=== PATIENT | female | born 1975 | race Caucasian/White ===

== ENCOUNTER 2019-02-27 03:34 | Emergency (ER) | payer BC ==
[~2019-02-27] VITALS: Ht 160 cm; Wt 107.5 kg
[~2019-02-27 03:34] MED LIST: ALEVE220 M1 PO; AMOXICILLIN 50500 MG PO; FLONASE 0.05%50 MCG NASAL; MOTRIN 800 MG; NORCO 5-325 TA1 EACH PO; PREDNISONE 10 M10 MG PO
[2019-02-27] MEDS ORDERED: XARELTO20 MG PO (03:46)
[2019-02-27] MEDS ORDERED: ASA81BEC PO (03:46)
[2019-02-27] MEDS ORDERED: COZAAR 25 MG TA25 M1 PO (03:47)
[2019-02-27 04:08] LABS: ABSOLUTE EOSINOPHILS 0.4 thou/uL (0.0-0.7); ABSOLUTE LYMPHOCYTES 3.5 thou/uL (0.8-5.3); ABSOLUTE MONOCYTES 0.7 thou/uL (0.0-1.2); ABSOLUTE NEUTROPHILS 5.5 thou/uL (1.6-8.1); BASOPHILS 0.3 %; EOSINOPHILS 4.2 %; HEMATOCRIT 34.4 % (37.0-47.0); HEMOGLOBIN 11.6 gm/dL (12.0-15.0); LYMPHOCYTES 34.6 %; MCH 29.2 pg (26.0-34.0); MCHC 33.8 g/dL (28.0-37.0); MCV 86.4 fL (80.0-100.0); MPV 8.3 fl. (7.2-11.1); NUCLEATED RBCS 0 /100WBC; PLATELET COUNT* 326 thou/uL (150-400); POLYS 53.9 %; RBC 3.99 mil/uL (4.20-5.00); RDW-CV 13.5 % (10.5-14.5); WBC 10.3 thou/uL (4.0-11.0)
[2019-02-27 04:10] LABS: URINE BILIRUBIN NEGATIVE (Negative); URINE BLOOD TRACE (Negative); URINE CLARITY CLEAR; URINE COLOR YELLOW; URINE GLUCOSE-RANDOM NEGATIVE (Negative); URINE KETONES NEGATIVE (Negative); URINE LEUKOCYTES-REFLEX NEGATIVE (Negative); URINE NITRITE-REFLEX NEGATIVE (Negative); URINE PROTEIN NEGATIVE (Negative); URINE SPECIFIC GRAVITY 1.025 (1.005-1.030); URINE UROBILINOGEN 0.2 E.U./dl (0.2-1.0)
[2019-02-27 04:19] LABS: CALCIUM 8.1 mg/dL (8.5-10.1); CREATININE 0.8 mg/dL (0.6-1.3); POTASSIUM 4.2 mmol/L (3.5-5.1)
[2019-02-27 04:23] LABS: ALBUMIN 3.3 g/dL (3.4-5.0); TOTAL BILIRUBIN 0.5 mg/dL (<0.1-1.0); TOTAL PROTEIN 6.7 g/dL (6.4-8.2)
[2019-02-27] MEDS ORDERED: NORCO 5-325 TA1 EAC1 PO (06:37)
[2019-02-27 07:40] VITALS: BP 130/56
== END 2019-02-27 07:40 | disposition home or self-care (01) ==
LOC: M.ERS 03:34
PROVIDERS: Emergency Medicine Emergency Medical Services
DX: R10.9 Unspecified abdominal pain (principal); N80.9 Endometriosis, unspecified; Z88.1 Allergy status to other antibiotic agents; Z88.6 Allergy status to analgesic agent; Z88.8 Allergy status to other drugs, medicaments and biological substances; Z90.49 Acquired absence of other specified parts of digestive tract

== ENCOUNTER 2021-02-26 07:19 | Inpatient (IN) | payer BC ==
[~2021-02-26] VITALS: Ht 154.9 cm; Wt 133.8 kg
[~2021-02-26 07:19] MED LIST changes: +ASA81BEC PO; +COZAAR 25 MG TA25 M1 PO; +NORCO 5-325 TA1 EAC1 PO; +XARELTO20 MG PO
[2021-02-26 07:59] VITALS: BP 147/91
[2021-02-26] MEDS ORDERED: COZAAR 25 MG TA25 MG PO (08:02)
[2021-02-26 08:32] LABS: ABSOLUTE LYMPHOCYTES 0.9 thou/uL (0.8-5.3); ABSOLUTE MONOCYTES 0.3 thou/uL (0.0-1.2); ABSOLUTE NEUTROPHILS 4.5 thou/uL (1.6-8.1); BASOPHILS 0.4 %; HEMOGLOBIN 11.3 gm/dL (12.0-15.0); LYMPHOCYTES 15.6 %; MCH 27.9 pg (26.0-34.0); MCHC 33.2 g/dL (28.0-37.0); MCV 83.9 fL (80.0-100.0); MONOCYTES 4.6 %; MPV 9.4 fl. (7.2-11.1); NUCLEATED RBCS 0 /100WBC; PLATELET COUNT* 237 thou/uL (150-400); POLYS 79.4 %; RBC 4.05 mil/uL (4.20-5.00); RDW-CV 13.5 % (10.5-14.5); WBC 5.7 thou/uL (4.0-11.0)
[2021-02-26 09:10] LABS: ALBUMIN 2.6 g/dL (3.4-5.0); CALCIUM 7.9 mg/dL (8.5-10.1); CREATININE 0.6 mg/dL (0.6-1.3); TOTAL BILIRUBIN 0.4 mg/dL (<0.1-1.0); TOTAL PROTEIN 6.8 g/dL (6.4-8.2)
[2021-02-26 09:12] LABS: POTASSIUM 2.9 mmol/L (3.5-5.1)
--- NOTE | 2021-02-26 10:41 | EKG ---
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 : 1975 Requested By: Jose Rose Order Number: [id number] MD: Enrique Gardner Measurements Intervals Rawlings Rate: 84 P: 31 PA: 161 QRS: 35 QRSD: 83 T: 40 QT: 362 QTc: 428 Interpretive Statements Sinus rhythm Low voltage, precordial leads No previous ECG available for comparison Electronically Signed On 02-26-2021 10:41:46 [employer] by Enrique Gardner [email or web address] <ELECTRONICALLY SIGNED> By: Enrique Gardner MD, [facility] 02/26/21 1041 0840 0840 Enrique Gardner MD, [facility] /EPI
[2021-02-26 12:00] VITALS: BP 139/82
[2021-02-26 13:06] LABS: CREATININE 0.6 mg/dL (0.6-1.3)
[2021-02-26 13:09] LABS: PHOSPHORUS* 2.7 mg/dL (2.5-4.9)
[2021-02-26 16:00] VITALS: BP 142/79
[2021-02-26 20:00] VITALS: BP 130/74
[2021-02-27] VITALS (7 sets, daily range): BP systolic 111–144; BP diastolic 59–82
[2021-02-27 03:23] LABS: ABSOLUTE LYMPHOCYTES 0.8 thou/uL (0.8-5.3); ABSOLUTE MONOCYTES 0.2 thou/uL (0.0-1.2); ABSOLUTE NEUTROPHILS 1.9 thou/uL (1.6-8.1); BASOPHILS 0.1 %; EOSINOPHILS 0.1 %; HEMATOCRIT 32.1 % (37.0-47.0); HEMOGLOBIN 10.5 gm/dL (12.0-15.0); LYMPHOCYTES 27.8 %; MCH 27.9 pg (26.0-34.0); MCHC 32.8 g/dL (28.0-37.0); MCV 85.2 fL (80.0-100.0); MONOCYTES 6.4 %; MPV 9.1 fl. (7.2-11.1); NUCLEATED RBCS 0 /100WBC; PLATELET COUNT* 254 thou/uL (150-400); POLYS 65.6 %; RBC 3.77 mil/uL (4.20-5.00); RDW-CV 13.7 % (10.5-14.5)
[2021-02-27 03:39] LABS: CALCIUM 7.4 mg/dL (8.5-10.1); CREATININE 0.7 mg/dL (0.6-1.3)
[2021-02-28 00:36] VITALS: BP 155/88
[2021-02-28 04:36] VITALS: BP 148/80
[2021-02-28 04:44] LABS: ABSOLUTE MONOCYTES 0.5 thou/uL (0.0-1.2); ABSOLUTE NEUTROPHILS 3.9 thou/uL (1.6-8.1); BASOPHILS 0.1 %; HEMATOCRIT 30.8 % (37.0-47.0); HEMOGLOBIN 10.4 gm/dL (12.0-15.0); LYMPHOCYTES 17.9 %; MCH 28.6 pg (26.0-34.0); MCHC 33.7 g/dL (28.0-37.0); MONOCYTES 9.6 %; MPV 9.1 fl. (7.2-11.1); NUCLEATED RBCS 0 /100WBC; PLATELET COUNT* 312 thou/uL (150-400); POLYS 72.4 %; RBC 3.63 mil/uL (4.20-5.00); RDW-CV 13.5 % (10.5-14.5); WBC 5.3 thou/uL (4.0-11.0)
[2021-02-28 05:26] LABS: ALBUMIN 2.6 g/dL (3.4-5.0); CALCIUM 7.6 mg/dL (8.5-10.1); CREATININE 0.6 mg/dL (0.6-1.3); MAGNESIUM 2.2 mg/dL (1.8-2.4); POTASSIUM 4.1 mmol/L (3.5-5.1); TOTAL BILIRUBIN 0.3 mg/dL (<0.1-1.0); TOTAL PROTEIN 6.2 g/dL (6.4-8.2)
[2021-02-28 05:38] LABS: APTT 28.9 Seconds (25.0-31.3); PROTIME 10.5 Seconds (9.20-11.50)
[2021-02-28 12:00] VITALS: BP 143/77
[2021-02-28 16:00] VITALS: BP 151/72
--- NOTE | 2021-02-28 16:41 | 2DMMODE ---
[place] [address] 2 D/M-MODE ECHOCARDIOGRAM Name: CHRISTA MARTIN Dg Room: [address] IN .R.#: [id number] Admission: 02/26/21 Attend Phys: Elan Orr, Discharge: Date of : 79 Date of Service: 02/28/21 1641 Report #: [id number] THIS REPORT FOR: cc: Jossue Borrero MD, Usman MD Liston, Michael J. MD [facility] ~ APPROVED REPORT Study performed: 02/28/2021 15:35:08 EXAM: Comprehensive 2D, Doppler, and color-flow Echocardiogram BSA: 2.20 HR: 59 bpm BP: 148/80 mmHg Other Information Study Quality: Technically Limited Technically limited study due to body habitus, inability to position patient, breast implants. Indications Congestive Heart Failure 2D Dimensions IVSd: 13.52 (7-11mm) LVOT Diam: 21.36 (18-24mm) LVDd: 37.96 mm PWd: 17.21 (7-11mm) Ascending Ao: 29.32 (22-36mm) LVDs: 28.72 (25-40mm) Aortic Root: 31.76 mm Volumes Left Atrial Volume (Systole) LA ESV Index: 17.70 mL/m2 Aortic Valve AoV Peak Jone.: 1.03 m/s AO Peak Gr.: 4.27 mmHg LVOT Max P.27 mmHg AO Mean Gr.: 1.90 mmHg LVOT Mean P.96 mmHg LVOT Max V: 0.75 m/s AO V2 VTI: 24.31 cm LVOT Mean V: 0.43 m/s NOREEN (VTI): 1.74 cm2 LVOT V1 VTI: 11.78 [place] [address] 2 D/M-MODE ECHOCARDIOGRAM Name: CHRISTA MARTIN Room: [address] IN .R.#: [id number] Admission: 02/26/21 Attend Phys: Elan Orr, Discharge: Date of : 79 Date of Service: 02/28/21 1641 Report #: [id number] E/A Ratio: 2.58 MV Decel. Time: 274.43 ms MV E Max Jone.: 0.61 m/s MV PHT: 79.59 ms MVA (PHT): 2.76 cm2 TDI E/Lateral E': 4.36 Lateral E' Jone.: 0.14 m/s Pulmonary Valve PV Peak Jone.: 0.98 m/s PV Peak Gr.: 3.82 mmHg Tricuspid Valve RAP Estimate: 5.00 mmHg TR Peak Gr.: 9.09 mmHg RVSP: 14.09 mmHg PA Pressure: 14.09 mmHg Left Ventricle The left ventricle is normal size. There is normal LV segmental wall motion. Mild concentric left ventricular hypertrophy. Left ventricular systolic function is normal. LVEF is 55-60%. The left ventricular diastolic function is normal. Right Ventricle The right ventricle is normal size. The right ventricular systolic function is normal. Atria The left atrium size is normal. The right atrium size is normal. Aortic Valve Aortic valve is not well visualized. No aortic regurgitation is present. There is no aortic valvular stenosis. Mitral Valve Mitral valve is not well visualized. Trace mitral regurgitation. No evidence of mitral valve stenosis. Tricuspid Valve Tricuspid valve is not well visualized. Trace tricuspid regurgitation. Pulmonic Valve Pulmonic valve is not well visualized. There [place] [address] 2 D/M-MODE ECHOCARDIOGRAM Name: VERONICA,CHRISTA Conte Room: [address] IN [facility]#: [id number] Admission: 02/26/21 Attend Phys: Elan Orr, Discharge: Date of : 79 Date of Service: 02/28/21 1641 Report #: [id number] regurgitation. Great Vessels The aortic root is normal in size. IVC is normal in size and collapses >50% with inspiration. Pericardium There is no pericardial effusion. <Conclusion> The left ventricle is normal size. Mild concentric left ventricular hypertrophy. Left ventricular systolic function is normal. LVEF is 55-60%. The left ventricular diastolic function is normal. There is normal LV segmental wall motion. Trace mitral regurgitation. Trace tricuspid regurgitation. IVC is normal in size and collapses >50% with inspiration. <ELECTRONICALLY SIGNED> By: Enrique Gardner MD, FACC 02/28/211640 40 40 Enrique Gardner MD, FACC /INF
[2021-02-28 20:05] VITALS: BP 146/77
--- NOTE | 2021-02-28 22:45 | CON ---
[address] [address] CONSULTATION Name: CHRISTA MARTIN Room: [address] IN .R.#: [id number] Admission: 02/26/21 Attend Phys: Elan Orr MD Discharge: Date of : 79 Report #: [id number] THIS REPORT FOR: cc: Jossue Borrero MD, Usman MD Pervez, Adeel MD ~ DATE OF CONSULTATION: 02/27/2021 REQUESTING PHYSICIAN: Elan Orr MD INDICATION FOR CONSULTATION: Acute hypoxemic respiratory failure secondary to COVID-19. HISTORY OF PRESENT ILLNESS: A 46-year-old female, past medical history is as mentioned below. She is unvaccinated for COVID-19. She is a lifetime nonsmoker. She is now admitted with respiratory illness, is short of breath, has been coughing, says that earlier, she did have some hemoptysis as well, currently is requiring about 5-7 liters of oxygen to maintain O2 saturation in the low 90s. The patient also states that she is having a significant headache intermittently with respirations. REVIEW OF SYSTEMS: For 12 points is negative except as mentioned above. PAST MEDICAL HISTORY: Has had Xarelto in the past, reason not known to me. Endometriosis, cholecystectomy, iliac stents, bilateral mastectomy. SOCIAL HISTORY: Lifetime nonsmoker. No known history of heavy alcohol use or illegal drug use. CURRENT MEDICATIONS: List in [facility] reviewed. HOME MEDICATIONS: List in [facility] reviewed. ALLERGIES: PENICILLINS, CIPROFLOXACIN, TRAMADOL AND LEVAQUIN ARE MENTIONED IN THE ALLERGIES. The patient tolerates cephalosporins without problems. FAMILY HISTORY: No pertinent family history. PHYSICAL EXAMINATION: GENERAL: She is alert, awake and oriented. Vitals in the records reviewed, requiring about 5-7 liters of oxygen to maintain O2 saturation in the low 90s. NECK: Does not show raised JVP. CHEST: Breath sounds bilaterally equal. No added sounds. HEART: Regular. No murmur. ABDOMEN: [place] [address] CONSULTATION Name: VERONICACHRISTA Room: [address] IN [facility]#: [id number] Admission: 02/26/21 Attend Phys: Elan Orr MD Discharge: Date of : 79 Report #: [id number] EXTREMITIES: Lower extremities, 1+ edema, no calf tenderness. LABORATORY DATA: Lab work and x-ray and CTA chest in [facility] reviewed. ASSESSMENT AND PLAN: 1. Acute hypoxemic respiratory failure secondary to COVID-19. Avoid supine sleep. Out of bed to chair as tolerated. Her body mass index is significantly elevated and therefore if her respiratory status worsens, I will have a low threshold of adding a BiPAP while asleep. 2. COVID-19, agree with dexamethasone and remdesivir as currently prescribed. May also benefit from Actemra if available. I understand that is in short supply. 3. Pulmonary infiltrates/hemoptysis. Considering that she reported that she had hemoptysis, I will give her more MRSA coverage. Therefore, I will go ahead and start her on vancomycin. We will continue with ceftriaxone but will increase the dose. We would switch doxycycline to azithromycin to maintain atypical coverage. We will send off a nasal swab for MRSA as well as sputum culture. CTA chest does not show a clot. 4. Headaches, recommend CT head. This appears to be significantly beneficial for the patient. 5. Hypokalemia/fluid overload. Overall, she appears to be fluid overloaded. I recommend giving her Lasix, but would want to bring the potassium up first. Recommend replacing potassium per protocol. We will also give her one dose of Aldactone. Reassess tomorrow. 6. Clostridium difficile prophylaxis, Lactinex. 7. Gastrointestinal prophylaxis, Pepcid. 8. Clostridium difficile prophylaxis, probiotic. 9. Edema of lower extremities. We will also do venous Dopplers if D-dimer is elevated. I ordered a D-dimer for tomorrow. Thanks for this consultation. <ELECTRONICALLY SIGNED> By: Denilson Barber MD 02/28/21 2245 1610 [id number] Barber MD /nt
[2021-03-01] VITALS: BP 141/70
[2021-03-01 04:00] VITALS: BP 166/71
[2021-03-01 08:00] VITALS: BP 159/84
[2021-03-01 08:05] LABS: HEMATOCRIT 31.6 % (37.0-47.0); HEMOGLOBIN 10.3 gm/dL (12.0-15.0); MCHC 32.8 g/dL (28.0-37.0); MCV 85.3 fL (80.0-100.0); MPV 9.4 fl. (7.2-11.1); NUCLEATED RBCS 0 /100WBC; PLATELET COUNT* 371 thou/uL (150-400); RDW-CV 13.6 % (10.5-14.5); WBC 7.2 thou/uL (4.0-11.0)
[2021-03-01 08:18] LABS: ABSOLUTE LYMPHOCYTES 1.2 thou/uL (0.8-5.3); ABSOLUTE MONOCYTES 0.7 thou/uL (0.0-1.2); ABSOLUTE NEUTROPHILS 5.3 thou/uL (1.6-8.1)
[2021-03-01 08:19] LABS: PLATELET ESTIMATE INCREASED
[2021-03-01 08:48] LABS: ALBUMIN 2.5 g/dL (3.4-5.0); CALCIUM 7.6 mg/dL (8.5-10.1); CREATININE 0.7 mg/dL (0.6-1.3); POTASSIUM 3.5 mmol/L (3.5-5.1); TOTAL BILIRUBIN 0.3 mg/dL (<0.1-1.0); TOTAL PROTEIN 6.2 g/dL (6.4-8.2)
[2021-03-01 16:00] VITALS: BP 134/71
[2021-03-01 19:50] VITALS: BP 141/63
[2021-03-02] VITALS: BP 141/71
[2021-03-02 04:00] VITALS: BP 141/52
--- NOTE | 2021-03-02 09:54 | CON ---
[address] [address] CONSULTATION Name: CHRISTA MARTIN Room: [address] IN M.R.#: [id number] Admission: 02/26/21 Attend Phys: Elan Orr MD Discharge: Date of : 79 Report #: [id number] THIS REPORT FOR: cc: Jossue Borrero MD, Usman MD [place], Roxane S. DO ~ DATE OF CONSULTATION: 03/01/2021 NEUROLOGY CONSULT HISTORY OF PRESENT ILLNESS: The patient is a 46-year-old female who presented to the Emergency Room on 02/26 with increasing shortness of air. Ten days prior, the patient was diagnosed with COVID. She is unvaccinated. Initially, the patient had a telehealth visit, she was seen at on 02/21/2021 and 02/22/2021, but was not seen. She then went to [facility] on 02/23/2021 and was given intravenous fluid and sent home. The patient states that since she was sent home, her oxygen levels have been dropping. On admission to the hospital, her initial oxygen level was 88. The patient is now on 6 liters nasal cannula. Her most recent oxygen saturation is 94%. Neurology is consulted for dizziness. The patient states that whenever she breathes in through her nose, she feels dizzy. It is a feeling that goes all the way up into her forehead. There is no spinning sensation. She states that since the dizziness began, it has improved. She denies headache, double vision, blurry vision, difficulty speaking or swallowing, unilateral weakness, numbness or tingling. She has had a CT scan of the head. This was normal. She has had a carotid Doppler. This was unremarkable. PAST MEDICAL HISTORY: Endometriosis, peripheral vascular disease, and breast cancer. PAST SURGICAL HISTORY: Cholecystectomy, iliac stents and bilateral mastectomy. MEDICATIONS: In hospital include Tylenol p.r.n., albuterol inhaler, Zithromax 500 mg daily, Tessalon Perles 100 mg q. 6 hours, Rocephin 2 grams daily, dexamethasone 6 mg b.i.d., Mucinex 1200 mg b.i.d., Humalog insulin sliding scale, lactobacillus t.i.d., ondansetron 4 mg q. 6 hours p.r.n. nausea, pantoprazole 40 mg daily, remdesivir daily, vancomycin q.i.d., and Xanax 0.25 mg q. 6 hours p.r.n. PHYSICAL EXAMINATION: VITAL SIGNS: Temperature is 36.4, pulse rate 56, respiratory rate 20, blood pressure 166/71, and bedside pulse oximetry 94% on 6 [place] [address] CONSULTATION Name: CHRISTA MARTIN Room: [address] IN [facility]#: [id number] Admission: 02/26/21 Attend Phys: Elan Orr MD Discharge: Date of : 79 Report #: [id number] NEUROLOGIC: Cranial nerves 2-12 are grossly intact. Extraocular movements intact. Facial expressions intact. Smile symmetrical. Tongue and palate midline. Shoulder shrug symmetrical bilaterally. Motor exam demonstrates the patient is able to move all four extremities. Fine finger movements and toe tapping are symmetrical bilaterally. Reflexes are trace throughout. Plantar responses are flexor bilaterally. There is no evidence of dysmetria with ulxdal-fj-[id number]. The patient states that she feels lightheaded whenever she breathes in. LABORATORY DATA: Hematology: White blood cell count 7.2, hemoglobin 10.3, hematocrit 31.6, and platelet count 371,000. Chemistry: Sodium 140, potassium 3.5, chloride 105, carbon dioxide 27, BUN 12, creatinine 0.7 and glucose 91. Lactic acid 0.9, calcium 7.6, phosphorus 2.3, magnesium 2.2, total bilirubin 0.3, AST 20, ALT 34, and alkaline phosphatase 62. Creatine kinase 818. Troponin 8, total protein 6.2, albumin 2.5, and prealbumin 23.7. COVID positive. DIAGNOSTIC DATA: The patient has had a CT scan of the head. There was nothing on the scan of significance with regard to the sinuses. IMPRESSION: It should be noted that COVID has been known to cause dizziness as a clinical manifestation and is sometimes one of the main clinical manifestations of COVID-19. At this point, I do not think further workup is necessary. However, if these symptoms continue, I would recommend an ABG, pulmonary functions which would have to be done as an outpatient and an MRI of the head. Another option would be outpatient vestibular testing. I thank you for your kind referral of the patient. <ELECTRONICALLY SIGNED> By: Starr Devries DO 03/02/21 0954 0919 [id number] Devries DO /nt
[2021-03-02 11:00] LABS: ABSOLUTE LYMPHOCYTES 2.8 thou/uL (0.8-5.3); ABSOLUTE MONOCYTES 1.1 thou/uL (0.0-1.2); ABSOLUTE NEUTROPHILS 9.9 thou/uL (1.6-8.1); BASOPHILS 0.3 %; EOSINOPHILS 0.1 %; HEMATOCRIT 35.5 % (37.0-47.0); HEMOGLOBIN 11.5 gm/dL (12.0-15.0); LYMPHOCYTES 20.4 %; MCH 27.2 pg (26.0-34.0); MCHC 32.5 g/dL (28.0-37.0); MCV 83.5 fL (80.0-100.0); MONOCYTES 7.7 %; MPV 8.4 fl. (7.2-11.1); NUCLEATED RBCS 0 /100WBC; PLATELET COUNT* 374 thou/uL (150-400); POLYS 71.5 %; RBC 4.25 mil/uL (4.20-5.00); RDW-CV 13.1 % (10.5-14.5); WBC 13.9 thou/uL (4.0-11.0)
[2021-03-02 11:14] LABS: ALBUMIN 2.5 g/dL (3.4-5.0); CALCIUM 7.8 mg/dL (8.5-10.1); CREATININE 0.9 mg/dL (0.6-1.3); POTASSIUM 3.2 mmol/L (3.5-5.1); TOTAL BILIRUBIN 0.5 mg/dL (<0.1-1.0); TOTAL PROTEIN 6.1 g/dL (6.4-8.2)
[2021-03-02 12:00] VITALS: BP 137/78
[2021-03-02 16:00] VITALS: BP 144/79
[2021-03-02 20:00] VITALS: BP 137/73
[2021-03-03] VITALS: BP 146/78
[2021-03-03 04:00] VITALS: BP 142/73
[2021-03-03 08:00] VITALS: BP 125/60
[2021-03-03 09:30] VITALS: BP 112/67
[2021-03-03 12:00] VITALS: BP 125/60
[2021-03-03 16:00] VITALS: BP 133/66
[2021-03-04] VITALS: BP 125/52
[2021-03-04 04:45] VITALS: BP 147/58
[2021-03-04] MEDS ORDERED: TESSALON PERLE100 MG PO (06:39)
[2021-03-04] MEDS ORDERED: NEXIUM40 MG PO (06:39)
[2021-03-04] MEDS ORDERED: PROAIR HFA8.5 GM INH (06:40)
[2021-03-04] MEDS ORDERED: DOXYCYCLINE 10100 MG PO (06:40)
[2021-03-04] MEDS ORDERED: DEXAMETHASONE1 MG PO (06:40)
[2021-03-04 12:00] VITALS: BP 116/43
[2021-03-04 15:50] VITALS: BP 116/43
== END 2021-03-04 16:56 | disposition home or self-care (01) | DRG 177 ==
LOC: M.ERS 07:19 → M.ORTHSURG 08:49 → M.TBA-ER 08:49 → M.ORTHSURG 02-27 03:23
PROVIDERS: Family Medicine; Internal Medicine Critical Care Medicine; ADMIT Internal Medicine; ATTEND Internal Medicine
PROC: XW033E5 Introduction of Remdesivir Anti-infective into Peripheral Vein, Percutaneous Approach, New Technology Group 5 (ICD-10-PCS; principal; 2021-02-26)
PROC: 5A0935A Assistance with Respiratory Ventilation, Less than 24 Consecutive Hours, High Flow/Velocity Cannula (ICD-10-PCS; 2021-02-27)
PROC: 5A0935A Assistance with Respiratory Ventilation, Less than 24 Consecutive Hours, High Flow/Velocity Cannula (ICD-10-PCS; 2021-03-03)
PROC: 5A0935A Assistance with Respiratory Ventilation, Less than 24 Consecutive Hours, High Flow/Velocity Cannula (ICD-10-PCS; 2021-03-04)
PROC: 05HB33Z Insertion of Infusion Device into Right Basilic Vein, Percutaneous Approach (ICD-10-PCS; 2021-03-04)
DX: U07.1 COVID-19 (principal); J12.82 Pneumonia due to coronavirus disease 2019; J80 Acute respiratory distress syndrome; R04.2 Hemoptysis; Z68.43 Body mass index [BMI] 50.0-59.9, adult; E87.6 Hypokalemia; E66.01 Morbid (severe) obesity due to excess calories; E87.70 Fluid overload, unspecified; F41.9 Anxiety disorder, unspecified; Z79.82 Long term (current) use of aspirin; Z90.49 Acquired absence of other specified parts of digestive tract; Z90.13 Acquired absence of bilateral breasts and nipples; Z95.820 Peripheral vascular angioplasty status with implants and grafts; Z88.1 Allergy status to other antibiotic agents; Z88.8 Allergy status to other drugs, medicaments and biological substances; Z85.3 Personal history of malignant neoplasm of breast; Z79.899 Other long term (current) drug therapy